=== PATIENT | female | born 1990 | race Caucasian/White ===

== ENCOUNTER 2021-02-16 18:38 | Outpatient (CLI) | payer OTHER, SELFPAY ==
[2021-02-16 19:05] VITALS: BP 128/86; PULSE 84; RESP 18
[2021-02-16 19:13] VITALS: BP 137/86; PULSE 85
[2021-02-16 19:14] LABS: Basophils Percent Auto 0.2 % (0.2-1.2); Eosinophils Absolute Auto 0.1 K/mm3 (0-0.3); Eosinophils Percent Auto 0.6 % (0-4.4); Hematocrit 37.4 % (37.0-47.0); Hemoglobin 12.5 g/dL (12.0-15.0); Immature Granulocyte Percent A 0.8 % (0-0.5); Lymphocytes Absolute Auto 2.22 K/mm3 (0.9-3.2); Lymphocytes Percent Auto 18.4 % (18.3-44.2); Mean Corpuscular HGB Conc 33.4 g/dl (32-36); Mean Corpuscular Hemoglobin 32.1 pg (26-34); Mean Corpuscular Volume 95.9 fl (80-100); Mean Platelet Volume 11.3 fl (7.4-10.4); Monocytes Absolute Auto 0.9 K/mm3 (0.1-0.6); Monocytes Percent Auto 7.4 % (2.6-8.5); Neutrophils Absolute Auto 8.8 K/mm3 (1.3-6.7); Neutrophils Percent Auto 72.6 % (45.5-73.1); Platelet Count Result 187 k/mm3 (150-375); Red Cell Distribution Width 13.1 % (11.5-14.5); White Blood Count 12.1 K/mm3 (4.5-10.0)
[2021-02-16 19:15] VITALS: BP 121/72; PULSE 84
[2021-02-16 19:19] LABS: Add Urine Microscopic? YES; Appearance Urine Cloudy (Clear); Bacteria Urine Trace /hpf; Bilirubin Urine Negative (Negative); Blood Urine Negative (Negative); Color Urine Yellow (Yellow); Glucose Urine UA Negative (Negative); Ketones Urine Negative (Negative); Leukocyte Esterase Ur Negative LEU/UL (NEGATIVE); Mucus Urine Rare /lpf; Nitrate Urine Negative (Negative); Protein Urine 1+ mg/dL (Negative); Specific Grav Ur 1.018 (1.001-1.035); Squamous Epithelial Cell Urine Rare /hpf (Few); Urobilinogen Urine Negative mg/dL (<2.0)
[2021-02-16 19:22] LABS: Creatinine Urine 133.2 mg/dL; Total Protein Urine Random 15 mg/dL; Ur Ttl Prot Creatinine Ratio 0.11 mg/mg (0-0.20)
[2021-02-16 19:24] VITALS: RESP 16; TEMP 36.4
[2021-02-16 19:28] LABS: Alanine Aminotransferase 13 U/L (4-35); Alkaline Phosphatase 94 U/L (38-126); Anion Gap 9 mmol/L (8-16); Aspartate Amino Transferase 16 U/L (14-36); Bilirubin,Total 0.4 mg/dL (0.2-1.3); Blood Urea Nitrogen 7 mg/dL (7-17); Calcium 9.1 mg/dL (8.4-10.2); Carbon Dioxide 22 mmol/L (22-30); Chloride 105 mmol/L (98-107); Estimated Glomerular Filt Rate > 60; Glucose 79 mg/dL (65-110); Potassium 3.9 mmol/L (3.4-5.0); Sodium 136 mmol/L (137-145)
[2021-02-16 19:30] VITALS: BP 121/89; PULSE 87
[2021-02-16] MEDS: FAMOTIDINE 20 MG TABLET 40 MG PO (19:42)
--- NOTE | 2021-02-16 19:49 | PC.NURSE ---
Dr Mello Ybarra responded to page at 1931. Updated on pt blood pressures, lab results, assessment, and fht. Orders received.
== END 2021-02-16 19:47 | disposition home or self-care (01) ==
PROVIDERS: Obstetrics & Gynecology; Visit Provider Student in an Organized Health Care Education/Training Program
DX: O13.9 Gestational [pregnancy-induced] hypertension without significant proteinuria, unspecified trimester (principal); Z3A.00 Weeks of gestation of pregnancy not specified
CPT/HCPCS: 36415; 80053; 81001; 82570; 84156; 84550; 85025; 87086; 87088; A9270

== ENCOUNTER 2021-02-26 07:26 | Outpatient (RCR) | payer OTHER, SELFPAY ==
[2021-02-15 09:59] LABS: Hematocrit 35.8 % (37.0-47.0); Mean Corpuscular HGB Conc 33.5 g/dl (32-36); Mean Corpuscular Hemoglobin 32.4 pg (26-34); Mean Corpuscular Volume 96.8 fl (80-100); Mean Platelet Volume 11.3 fl (7.4-10.4); Platelet Count Result 168 k/mm3 (150-375); Red Cell Distribution Width 12.9 % (11.5-14.5); White Blood Count 10.9 K/mm3 (4.5-10.0)
[2021-02-15 10:10] VITALS: BP 125/80; PULSE 84
[2021-02-15 10:11] LABS: Alanine Aminotransferase 14 U/L (4-35); Albumin Level 3.9 g/dL (3.5-5.1); Alkaline Phosphatase 85 U/L (38-126); Anion Gap 10 mmol/L (8-16); Aspartate Amino Transferase 17 U/L (14-36); Bilirubin,Total 0.2 mg/dL (0.2-1.3); Blood Urea Nitrogen 6 mg/dL (7-17); Calcium 9.3 mg/dL (8.4-10.2); Carbon Dioxide 18 mmol/L (22-30); Chloride 106 mmol/L (98-107); Estimated Glomerular Filt Rate > 60; Glucose 112 mg/dL (65-110); Potassium 3.6 mmol/L (3.4-5.0); Sodium 134 mmol/L (137-145); Uric Acid 4.7 mg/dL (2.5-7.5)
[2021-02-15 10:45] LABS: Creatinine Urine 144.9 mg/dL; Total Protein Urine Random 7 mg/dL; Ur Ttl Prot Creatinine Ratio 0.05 mg/mg (0-0.20)
[2021-02-15 10:48] LABS: Add Urine Microscopic? YES; Appearance Urine Cloudy (Clear); Bacteria Urine Trace /hpf; Bilirubin Urine Negative (Negative); Blood Urine Negative (Negative); Color Urine Yellow (Yellow); Glucose Urine UA 3+ mg/dL (Negative); Ketones Urine Trace mg/dL (Negative); Leukocyte Esterase Ur Negative LEU/UL (NEGATIVE); Mucus Urine Few /lpf; Nitrate Urine Negative (Negative); Protein Urine 1+ mg/dL (Negative); Specific Grav Ur 1.017 (1.001-1.035); Squamous Epithelial Cell Urine Moderate /hpf (Few); Urobilinogen Urine Negative mg/dL (<2.0)
[2021-02-16 10:38] VITALS: BMI 38.0
[2021-02-16 12:00] LABS: Collection Time Urine 24 HOURS; Patient Weight 257 Lbs
[2021-02-16 12:00] LABS: Total Volume 24 Hour Urine 2000 ml
[2021-02-16 12:01] LABS: Total Volume 24 Hour Urine 2000 ml
[2021-02-16 12:13] LABS: Total Protein Urine 24 Hr 360 mg/24hr (28-141); Total Protein Urine Random 18 mg/dL
[2021-02-16 12:14] LABS: Creatinine Clearance Urine 159.5 ml/min (75-125)
[2021-02-22 12:44] VITALS: BP 125/79; PULSE 93
[2021-02-26 07:52] VITALS: BP 131/82; PULSE 97
== END 2021-04-15 09:42 | disposition home or self-care (01) ==
LOC: ANHOBOP 07:26
PROVIDERS: Visit Provider Student in an Organized Health Care Education/Training Program
DX: O26.893 Other specified pregnancy related conditions, third trimester (principal); R03.0 Elevated blood-pressure reading, without diagnosis of hypertension; Z3A.35 35 weeks gestation of pregnancy
CPT/HCPCS: 36415; 59025; 80053; 81001; 81050; 82570; 82575; 84156; 84550; 85027; 87086; 87088

== ENCOUNTER 2021-03-02 19:45 | Inpatient (IN) | payer OTHER, SELFPAY ==
[2021-03-02] VITALS (17 sets, daily range): BP systolic 100–145; BP diastolic 32–103; PULSE 84–122; RESP 18; TEMP 36.6; BMI 37.3
--- NOTE | 2021-03-02 20:34 | LDADM ---
This patient, Hina Bonilla, was admitted to Labor/Delivery/Recovery 106 on 03/02/21 at 19:45. Plans for labor, pain management and were discussed with patient. Patient/family oriented to hospital policies and general routines including ID bracelet, bed and alarms, visiting hours, pain management, procedures, bathroom and other care routines, personal items, smoking policy, room service/diet and guest tray routines, infant security routines, and visiting hours. Patient/Family are encouraged to report perceived risks to care and to ask questions if they do not understand what they are told or what they should do. See OBIX for further documentation.
[2021-03-02 20:35] LABS: Basophils Percent Auto 0.2 % (0.2-1.2); Eosinophils Absolute Auto 0.1 K/mm3 (0-0.3); Eosinophils Percent Auto 0.4 % (0-4.4); Hematocrit 37.2 % (37.0-47.0); Hemoglobin 12.5 g/dL (12.0-15.0); Immature Granulocyte Absolute 0.09 K/mm3 (0.00-0.031); Immature Granulocyte Percent A 0.7 % (0-0.5); Lymphocytes Absolute Auto 2.74 K/mm3 (0.9-3.2); Lymphocytes Percent Auto 22.5 % (18.3-44.2); Mean Corpuscular HGB Conc 33.6 g/dl (32-36); Mean Corpuscular Hemoglobin 31.8 pg (26-34); Mean Corpuscular Volume 94.7 fl (80-100); Mean Platelet Volume 11.6 fl (7.4-10.4); Monocytes Absolute Auto 0.9 K/mm3 (0.1-0.6); Monocytes Percent Auto 7.5 % (2.6-8.5); Neutrophils Absolute Auto 8.4 K/mm3 (1.3-6.7); Neutrophils Percent Auto 68.7 % (45.5-73.1); Platelet Count Result 200 k/mm3 (150-375); Red Blood Count 3.93 M/mm3 (4.2-5.4); Red Cell Distribution Width 12.7 % (11.5-14.5); White Blood Count 12.2 K/mm3 (4.5-10.0)
[2021-03-02 20:48] LABS: Alanine Aminotransferase 15 U/L (4-35); Albumin Level 4.1 g/dL (3.5-5.1); Alkaline Phosphatase 109 U/L (38-126); Anion Gap 10 mmol/L (8-16); Aspartate Amino Transferase 21 U/L (14-36); Bilirubin,Total 0.4 mg/dL (0.2-1.3); Blood Urea Nitrogen 8 mg/dL (7-17); Calcium 9.6 mg/dL (8.4-10.2); Carbon Dioxide 19 mmol/L (22-30); Chloride 103 mmol/L (98-107); Estimated Glomerular Filt Rate > 60; Glucose 121 mg/dL (65-110); Potassium 3.7 mmol/L (3.4-5.0); Sodium 132 mmol/L (137-145); Uric Acid 4.7 mg/dL (2.5-7.5)
--- NOTE | 2021-03-02 21:00 | WPDANESEPP ---
Anes - Eval Pre Procedure Procedure: Labor epidural Date/Time: 03/02/21 21:00 Surgeon: Abraham Preop Diagnosis: Abd pain with contractions Pre Op Diagnosis: Induction Patient Data Age: 30 Gender: F Height: 1.77 m Weight: 116.4 kg Last Vital Signs Pulse 99 03/02/21 20:46 BP 124/87 03/02/21 20:46 Allergies Allergy/AdvReac Type Severity Reaction Status Date / Time latex Allergy Hives Verified 04/14/19 14:08 Home Medications Medication Instructions Recorded Confirmed Type famotidine [Pepcid] 20 mg PO BID #10 tablet 04/14/19 03/02/21 Rx ergocalciferol (vitamin D2) 1 mcg PO WEEKLY 03/02/21 03/02/21 History [id number] 1 tablet PO DAILY 03/02/21 03/02/21 History [] Laboratory Tests 03/02/21 03/02/21 03/02/21 20:19 20:19 20:19 WBC 12.2 K/mm3 H K/mm3 (4.5-10.0) RBC 3.93 M/mm3 L M/mm3 (4.2-5.4) Hgb 12.5 g/dL g/dL (12.0-15.0) Hct 37.2 % % (37.0-47.0) MCV 94.7 fl fl (80-100) MCH 31.8 pg pg (26-34) MCHC 33.6 g/dl g/dl (32-36) RDW 12.7 % % (11.5-14.5) Plt Count 200 k/mm3 k/mm3 (150-375) MPV 11.6 fl H fl (7.4-10.4) Immature Gran % (Auto) 0.7 % H % (0-0.5) Neut % (Auto) 68.7 % % (45.5-73.1) Lymph % (Auto) 22.5 % % (18.3-44.2) [place] % (Auto) 7.5 % % (2.6-8.5) Eos % (Auto) 0.4 % % (0-4.4) Baso % (Auto) 0.2 % % (0.2-1.2) Lymph # (Auto) 2.74 K/mm3 K/mm3 (0.9-3.2) [place] # (Auto) 0.9 K/mm3 H K/mm3 (0.1-0.6) Eos # (Auto) 0.1 K/mm3 K/mm3 (0-0.3) Baso # (Auto) 0.0 K/mm3 K/mm3 (0.0-0.1) Abs Immat Gran (auto) 0.09 K/mm3 H K/mm3 (0.00-0.031) Absolute Neuts (auto) 8.4 K/mm3 H K/mm3 (1.3-6.7) Absolute Nucleated RBC 0.0 K/mm3 K/mm3 (0.0-0.012) Nucleated RBC % 0.0 % % (0.0-0.2) Sodium 132 mmol/L L mmol/L (137-145) Potassium 3.7 mmol/L mmol/L (3.4-5.0) Chloride 103 mmol/L mmol/L (98-107) Carbon Dioxide 19 mmol/L L mmol/L (22-30) Anion Gap 10 mmol/L mmol/L (8-16) BUN 8 mg/dL mg/dL (7-17) Creatinine 0.60 mg/dL L mg/dL (0.7-1.0) Estim Creat Clear Calc Not Reportable Estimated GFR > 60 (59 - ) Glucose 121 mg/dL H mg/dL (65-110) Uric Acid 4.7 mg/dL mg/dL (2.5-7.5) Calcium 9.6 mg/dL mg/dL (8.4-10.2) Total Bilirubin 0.4 mg/dL mg/dL (0.2-1.3) AST 21 U/L U/L (14-36) ALT 15 U/L U/L (4-35) Alkaline Phosphatase 109 U/L U/L (38-126) Total Protein 7.0 g/dL g/dL (6.3-8.2) Albumin 4.1 g/dL g/dL (3.5-5.1) RPR Pending Patient hx anesthesia problems: none Family hx anesthesia problems: none Results Review: All pre-operative results and documents have been reviewed as part of the pre-operative evaluation. [facility] Past Medical History Medical History Obesity PIH ( induced hypertension) Pre-eclampsia and not yet delivered Tonsillectomy planned Social History Social History Smoking status: Former smoker Tobacco type: e-cigarettes/vaping Substance use: never Spiritual care concerns: No Exam Day of Procedure 03/02/21 21:00 Patient weight: obese Lungs: clear to auscultation Airway: Mallampati scale class II Neurological: alert and oriented
[2021-03-02] MEDS: miSOPROStol 25 MCG TABLET VAGINAL (21:01)
[2021-03-03] VITALS (15 sets, daily range): BP systolic 99–149; BP diastolic 61–95; PULSE 82–101; RESP 18; TEMP 36.4–37
[2021-03-03] MEDS: miSOPROStol 25 MCG TABLET VAGINAL ×3 (01:00→09:33)
--- NOTE | 2021-03-03 06:36 | PM.IMHP ---
H&P: HPI History of Present Illness Date/Time: 03/03/21 06:36 Chief Complaint: intrauterine at term preeclampsia Narrative: 30 yo G1 at 37w4d who presents for IOL due to preeclampsia. Pt had several elevated BP readings at outpatient visits. [facility] labs revealed proteinuria at 34 w. Pt BP remained mild range. Pt had reassuring testing. is an IVF with transfer date of 07/03/20. Review of Systems Cardiovascular: Cardiovascular: Denies chest pain, Denies leg edema, Denies palpitations, Denies dyspnea and Denies dyspnea on exertion Respiratory: Respiratory: Denies cough, Denies dyspnea and Denies dyspnea on exertion Gastrointestinal: Gastrointestinal: Denies abdominal pain, Denies constipation, Denies diarrhea, Denies nausea and Denies vomiting Genitourinary: Genitourinary: Denies hematuria, Denies urinary frequency, Denies dysuria, Denies pelvic pain, Denies urinary incontinence and Denies vaginal discharge Neurologic: Reports system reviewed and no additional complaints, except as documented Psychiatric: Psychiatric: Reports no additional psychiatric complaints Endocrine: Endocrine: Denies palpitations [facility] Past Medical History Medical History Obesity PIH ( induced hypertension) Pre-eclampsia and not yet delivered Tonsillectomy planned Social History Social History Smoking status: Former smoker Tobacco type: e-cigarettes/vaping Substance use: never Spiritual care concerns: No Meds Home Medications and Allergies Home Medications Medication Instructions Recorded Confirmed Type famotidine [Pepcid] 20 mg PO BID #10 tablet 04/14/19 03/02/21 Rx ergocalciferol (vitamin D2) 1 mcg PO WEEKLY 03/02/21 03/02/21 History [id number] 1 tablet PO DAILY 03/02/21 03/02/21 History [] Allergies Allergy/AdvReac Type Severity Reaction Status Date / Time latex Allergy Hives Verified 04/14/19 14:08 Vital Signs Vital Signs - 24 hr 03/02/21 20:11 03/02/21 20:16 03/02/21 20:31 Temperature Pulse Rate 111 H 106 H 109 H Respiratory Rate Blood Pressure 131/79 135/97 H 132/88 03/02/21 20:46 03/02/21 20:58 03/02/21 21:01 Temperature 36.6 C Pulse Rate 99 101 H Respiratory Rate 18 Blood Pressure 124/87 145/92 H 03/02/21 21:16 03/02/21 21:31 03/02/21 21:46 Temperature Pulse Rate 100 122 H 97 Respiratory Rate Blood Pressure 134/81 133/72 128/75 03/02/21 22:01 03/02/21 22:16 03/02/21 22:31 Temperature Pulse Rate 92 104 H 106 H Respiratory Rate Blood Pressure 133/91 H 122/82 125/98 H 03/02/21 22:32 03/02/21 22:46 03/02/21 23:01 Temperature Pulse Rate 107 H 101 H 92 Respiratory Rate Blood Pressure 123/78 124/87 129/103 H 03/02/21 23:19 03/02/21 23:21 03/03/21 00:57 Temperature 37.0 C Pulse Rate 84 85 Respiratory Rate 18 Blood Pressure 103/32 L 100/73 03/03/21 00:58 03/03/21 05:22 03/03/21 05:23 Temperature 36.8 C Pulse Rate 96 94 Respiratory Rate Blood Pressure 139/86 135/70 Exam Const: General: no acute distress Eyes: EOM: EOMs intact bilaterally Neck: Neck: supple Thyroid: thyroid normal Chest: Breast/axilla inspection: normal inspection of the breasts Breast/axilla palpation: normal palpation of the breasts, normal palpation of the axillae and no axillary lymphadenopathy Resp: Effort & Inspection: normal respiratory effort Auscultation: clear to auscultation bilaterally Cardio: Rate: regular rate Rhythm: regular rhythm GI: Inspection: non-distended GI Palp: Yes Soft to palpation, No Tenderness to palpation present (GI), No Guarding due to palpation present (GI) and Yes Other GI palpation findings present (Gravid) Auscultation: normal bowel sounds : General: No bladder normal to palpation External Female Exam: normal external a
[2021-03-03 10:37] LABS: Rapid Plasma Reagin Non-Reactive (NonReactive)
[2021-03-03] MEDS: DINOPROSTONE 10 MG VAG INSERT VAGINAL (14:32)
[2021-03-04] VITALS (213 sets, daily range): BP systolic 66–139; BP diastolic 34–112; PULSE 27–151; RESP 16; TEMP 36.3–37; O2SAT 78–100
[2021-03-04] MEDS: OXYTOCIN 30 UNITS/NS 500 ML 30 UNITS/500 ML BAG 6 UNITS IV CONT (03:34)
[2021-03-04] MEDS: LACTATED RINGERS 1,000 ML 125 ML IV CONT ×2 (03:34→11:35)
--- NOTE | 2021-03-04 06:45 | PM.OBPNLAB ---
Pain Control Date/time seen: 03/04/21 06:45 Pain control: tolerating well Pelvic Exam Dilation (cm): 2 Effacement (%): 50 station: -3 Amniotic membrane status: Ruptured Comments: AROM for clear fluid Contractions Monitor mode: Internal Contraction pattern: Regular Status status: Category l Assessment and Plan Assessment: induction ongoing Plan: continuous present management
--- NOTE | 2021-03-04 15:36 | P.PCNOB_ITS ---
OB - Delivery Note Procedure Delivery date: 03/04/21 events: Pre-Eclampsia Intrapartal events: Prolonged Labor > 20 hours, Prolonged 2nd Stage > 2.5 hours and Mild Preeclampsia Induction method: per misoprostol protocol Delivery augmentation: rupture of membranes and pitocin Delivery monitor: external FHT and internal uterine Route of delivery: forceps Indication for instrumentation: other (prolonged 2nd stage of labor) Episiotomy description: None Laceration Description: Perineal - 2nd Degree and Vaginal - 2nd Degree Delivery repair: vicryl Specimen: Yes (placenta) Quantitative Blood Loss (ml): 500 Anesthesia type: Epidural Disposition: floor Narrative: Patient had been pushing for 3 hours. skull was noted to be +2 station and OP position. She had a moderate amount of caput. FHT had mod variability, acceleration and occasional decelerations with pushing. Discussed forceps assisted vaginal delivery vs section. Pt was consented and agreed to FAVD. Patient positioned in stirrups with the bed broken, dorsal lithotomy. Her perineum was prepped and draped in the usual fashion. The perineal body was normal length. Pelvis felt to be adequate. +2 station. Mod caput. Sagital suture palpated and found to be direct O-P plane with possibly 5 degrees leftward axis. Phantom application of blades performed prior to placing left hand into vaginal sidewall. Left blade gently inserted along air surveillance operator's hand to ensure no vag lacerations - advanced along the skull with the axillary prominence in a gentle fashion. In a similar fashion, the right blade was gently placed. Blade placement was then double checked to ensure adequate placement. The forceps shank articulated well in the midline. A fingerbreadth below the suture on either side was noted. With the next contraction, gentle downward pressure was applied in sync with the contraction / pushing effort. Adequate descent was noted. There were a total of 2 pulls, and the forceps were disarticulated as the head delivered. A nuchal cord x 1 was noted and easily reduced. The remainder of the infant was delivered atraumatically. A segment of cord taken for gases and sample collected as above. A second degree midline perineal lac was noted as well as a 2nd degree right sulcal vaginal laceration. The placenta delivered spontaneously and found to be intact. Routine repair of the lacerations with 3-0 vicryl. The uterus was noted to be atonic after prolonged 2nd stage. Brisk bleeding was noted from the vagina. Bimanual exam expressed several clots from the lower uterine segment. The patient was given 800 mcg of cytotec rectally. Fundal massage was continued and good tone and hemostasis was noted. All sponge, lap, and needle counts correct x 2. Patient taken out of lithotomy position and tolerated procedure very well. NICU present for delivery. Baby Date of : 03/04/21 Time of : 15:00 Weeks of gestation at delivery: 37 gender: Female Weight (pounds): 7 Weight (ounces): 10 presentation: vertex position: Right Occiput Posterior Placenta delivery description: Spontaneous cord vessel description: Nuchal Cord score one minute: 8 score five minutes: 9
[2021-03-04] MEDS: OXYTOCIN 30 UNITS/NS 500 ML 30 UNITS/500 ML BAG 125 UNITS IV CONT (15:42)
[2021-03-04] MEDS: LACTATED RINGERS 1,000 ML 999 ML IV CONT (17:12)
[2021-03-04 17:34] LABS: Hematocrit 31.6 % (37.0-47.0); Hemoglobin 10.2 g/dL (12.0-15.0); Mean Corpuscular HGB Conc 32.3 g/dl (32-36); Mean Corpuscular Hemoglobin 31.6 pg (26-34); Mean Corpuscular Volume 97.8 fl (80-100); Mean Platelet Volume 11.6 fl (7.4-10.4); Platelet Count Result 210 k/mm3 (150-375); Red Blood Count 3.23 M/mm3 (4.2-5.4); White Blood Count 26.5 K/mm3 (4.5-10.0)
[2021-03-04] MEDS: ONDANSETRON INJ 4 MG/2 ML VIAL IV PUSH (17:44)
[2021-03-04] MEDS: METHYLERGONOVINE MALEATE 0.2 MG/ML VIAL IM (17:45)
--- NOTE | 2021-03-04 17:49 | P.PNOB_ITS ---
OB - PN: Subj Subjective Date/time seen: 03/04/21 17:49 Interval history: Called to patient room for concerns of continued hemorrhage. Pt had 223 ml of blood in her pad after delivery. RN had noted the fundus was above the umbilicus. I performed a bedside US that showed a large amount of clot in the lower uterine segment. Pt was noted to be pale and l ethargic. STAT CBC was ordered. Pt was receiving IVF bolus. She was alert and in no pain. Anesthesia redosed her epidural. Once adequate anesthesia was confirmed, manual extraction of clots was performed under US guidance. The lower uterine segment was cleared of clots. There was still some clot noted near the fundus. Bedside Banjo curettage was then performed under direct US guidance. 493 mL of clot was removed from the uterus. Pt was very nauseous and had several episodes of emesis. Pt noted to be hypotensive. IM methergine was given since BP has had normal to hypotensive BP throughout her admission. No active bleeding was noted. The perineal laceration was inspected after manipualtion and there was a 1 cm superficial separation of the vaginal mucosa. The separation was repaired with a running 3-0 vicryl. Good hemostasis was noted. Bedside US was repeat and no further clot had accumulated in the uterus. Will continue to monitor. Continue IVF bolus. H/H is currently .. Patient comments: pain well controlled OB - PN: Obj Data Labs CBC & Chem 7: 03/04/21 17:26 03/02/21 20:19 Labs: Laboratory Results - last 24 hr 03/04/21 17:26 WBC 26.5 H RBC 3.23 L Hgb 10.2 L Hct 31.6 L MCV 97.8 MCH 31.6 MCHC 32.3 RDW 13.0 Plt Count 210 MPV 11.6 H OB - PN A/P Time Spent With Patient Time: Total time spent is greater than 50% in coordination of care (as documented) at patient's floor/unit and/or counseling patient:
--- NOTE | 2021-03-04 18:43 | PC.NURSE ---
Cytotec 800 mcg placed [place] by Dr. Rosario at 1534.
[2021-03-04] MEDS: TRANEXAMIC ACID 1,000MG/ISO100 1,000 MG/100 ML BAG 200 MG IVPB (19:00)
[2021-03-04] MEDS: WITCH HAZEL 40 PADS 1 PAD TOPICAL (19:27)
[2021-03-04] MEDS: BENZOCAINE 20% AER SPR (*SP) 56 GM CAN 1 SPRAY TOPICAL (19:27)
[2021-03-04] MEDS: HYDROcodone/acetaminophen (*CRX) 5-325 MG TABLET 1 TAB PO (20:02)
--- NOTE | 2021-03-04 20:31 | ADMGEN ---
This patient, Hina Bonilla, was admitted to OB 2nd Floor Room 283-00. Patient/family oriented to hospital policies and general routines including ID bracelet, bed and alarms, visiting hours, pain management, procedures, bathroom and other care routines, personal items, smoking policy, room service/diet, and visiting hours. Information on how to activate the Rapid Response Team has been discussed. Patient/Family are encouraged to report perceived risks to care and to ask questions if they do not understand what they are told or what they should do.
[2021-03-04] MEDS: POLYSACCHARIDE IRON COMPLEX 150 MG CAPSULE PO (22:14)
[2021-03-04] MEDS: SENNA/DOCUSATE SODIUM TABLET 2 TAB PO (22:14)
[2021-03-05] VITALS (12 sets, daily range): BP systolic 101–134; BP diastolic 55–78; PULSE 73–95; RESP 16–18; TEMP 36.6–37; O2SAT 96–100
[2021-03-05] MEDS: IBUPROFEN 600 MG TABLET PO ×4 (00:20→20:54)
[2021-03-05] MEDS: ONDANSETRON INJ 4 MG/2 ML VIAL IV PUSH (00:20)
[2021-03-05] MEDS: HYDROcodone/acetaminophen (*CRX) 5-325 MG TABLET 1 TAB PO ×3 (02:06→15:01)
[2021-03-05 05:27] LABS: Basophils Percent Auto 0.2 % (0.2-1.2); Eosinophils Percent Auto 0.2 % (0-4.4); Hematocrit 21.2 % (37.0-47.0); Immature Granulocyte Absolute 0.06 K/mm3 (0.00-0.031); Immature Granulocyte Percent A 0.5 % (0-0.5); Lymphocytes Absolute Auto 2.01 K/mm3 (0.9-3.2); Mean Corpuscular HGB Conc 32.5 g/dl (32-36); Mean Corpuscular Hemoglobin 31.5 pg (26-34); Mean Corpuscular Volume 96.8 fl (80-100); Mean Platelet Volume 11.6 fl (7.4-10.4); Monocytes Absolute Auto 1.3 K/mm3 (0.1-0.6); Monocytes Percent Auto 10.2 % (2.6-8.5); Neutrophils Absolute Auto 9.2 K/mm3 (1.3-6.7); Neutrophils Percent Auto 72.9 % (45.5-73.1); Platelet Count Result 117 k/mm3 (150-375); Red Blood Count 2.19 M/mm3 (4.2-5.4); Red Cell Distribution Width 13.1 % (11.5-14.5); White Blood Count 12.6 K/mm3 (4.5-10.0)
[2021-03-05 05:31] LABS: Hemoglobin 6.9 g/dL (12.0-15.0)
[2021-03-05 05:56] LABS: Alanine Aminotransferase 14 U/L (4-35); Albumin Level 2.6 g/dL (3.5-5.1); Alkaline Phosphatase 68 U/L (38-126); Anion Gap 5 mmol/L (8-16); Aspartate Amino Transferase 28 U/L (14-36); Bilirubin,Total 0.2 mg/dL (0.2-1.3); Blood Urea Nitrogen 7 mg/dL (7-17); Calcium 8.3 mg/dL (8.4-10.2); Carbon Dioxide 21 mmol/L (22-30); Chloride 104 mmol/L (98-107); Estimated CRCL calculation 123 ml/min; Estimated Glomerular Filt Rate > 60; Glucose 89 mg/dL (65-110); Potassium 3.8 mmol/L (3.4-5.0); Sodium 130 mmol/L (137-145)
--- NOTE | 2021-03-05 06:44 | P.PNOB_ITS ---
OB - PN: Subj Subjective Date/time seen: 03/05/21 06:44 Patient comments: no complaints, pain well controlled and tolerating diet [place] feeding status: exclusively breast feeding Narrative: patient doing well this AM. No complaints. Pain is well controlled. She reports minimal bleeding. She is ambulating and voiding without difficulty. She is tolerating PO. She denies N/V, fever, chills. OB - PN: Obj Data Labs CBC & Chem 7: 03/05/21 05:15 03/05/21 05:15 Labs: Laboratory Results - last 24 hr 03/04/21 03/05/21 03/05/21 17:26 05:15 05:15 WBC 26.5 H 12.6 H RBC 3.23 L 2.19 L Hgb 10.2 L 6.9 L* D Hct 31.6 L 21.2 L MCV 97.8 96.8 MCH 31.6 31.5 MCHC 32.3 32.5 RDW 13.0 13.1 Plt Count 210 117 L MPV 11.6 H 11.6 H Immature Gran % (Auto) 0.5 Neut % (Auto) 72.9 Lymph % (Auto) 16.0 L [place] % (Auto) 10.2 H Eos % (Auto) 0.2 Baso % (Auto) 0.2 Lymph # (Auto) 2.01 [place] # (Auto) 1.3 H Eos # (Auto) 0.0 Baso # (Auto) 0.0 Abs Immat Gran (auto) 0.06 H Absolute Neuts (auto) 9.2 H Absolute Nucleated RBC 0.0 Nucleated RBC % 0.0 Sodium 130 L Potassium 3.8 Chloride 104 Carbon Dioxide 21 L Anion Gap 5 L BUN 7 Creatinine 0.80 Estim Creat Clear Calc 123 Estimated GFR > 60 Glucose 89 Calcium 8.3 L Total Bilirubin 0.2 AST 28 ALT 14 Alkaline Phosphatase 68 Total Protein 5.0 L Albumin 2.6 L OB - PN A/P Plan day: 1 Plan: routine care Comments: patient doing well H/H 6.12/22. Pt asymptomatic. recommended blood transfusion. Risks, benefits, alternatives discussed. Pt consented for 2u pRBC transfusion. BP nl, denies any PreE symptoms CMP stable this AM continue routine care Time Spent With Patient Time: Total time spent is greater than 50% in coordination of care (as documented) at patient's floor/unit and/or counseling patient: Time with patient: less than 15 minutes Review of Systems Review of Systems: All systems reviewed & are unremarkable except as noted in HPI and below Exam Const: General: comfortable and no acute distress Resp: Effort & Inspection: normal respiratory effort Cardio: Rate: regular rate GI: GI Palp: Yes Soft to palpation and No Tenderness to palpation present (GI) Auscultation: normal bowel sounds Other: fundus firm and below umbilicus. Psych: Affect: normal affect
[2021-03-05] MEDS: POLYSACCHARIDE IRON COMPLEX 150 MG CAPSULE PO ×2 (08:38→18:49)
[2021-03-05] MEDS: MULTIVIT/MIN/PREN/FOL AC/IRON TABLET 1 TAB PO (08:38)
[2021-03-05] MEDS: diphenhydrAMINE HCl CAP 25 MG CAPSULE PO (08:38)
[2021-03-05] MEDS: SODIUM CHLORIDE 0.9% IV 250 ML 100 ML (08:40)
--- NOTE | 2021-03-05 09:00 | PC.NURSE ---
Mother called out for assist with feeding. Mother reports infant has made a few attempts without latch and then bottle fed. Infant is able to freely thrust tongue past gum ridge and flange both lips. Discussed establishing in the late infant may be more difficult due to their immaturity, infant may be less alert, have less stamina, and have greater difficulty with latch, suck, and swallow. Infant?s feeding may impact mother?s milk supply, pumping may need to be initiated until milk supply is well established and infant is able to effectively breastfeed without supplementation. Discussed mother's blood loss after delivery and how this may impact milk supply and may delay milk production. Reviewed feeding cues, frequencies, duration of feedings, feeding elimination flow sheet, and signs of adequate intake. Demonstrated stimulation techniques to wake for feeding. Assisted with to breast. Reviewed positioning/alignment in cross cradle, holding breast in ?U? hold and guided asymmetrical latch on. Reviewed rational for each. Infant made a weak effort to latch with a shallow latch short chew sucks for a few bursts followed with long pausing. Advised skin to skin is good stimulation and should be done before each feeding for 5-10 minutes, to facilitate waking infant before latch. Discussed the difference of effective vs ineffective feeding. Reviewed infant is latching with good burst of suckling, he is not feeding consistently with adequate milk transfer at this time and continues to need supplement after . Feeding options discussed, Feeding Plan is for mother to put infant to breast each feeding for up to 15 minutes, then pace feed supplement 20 mls and pump for 10-15 minutes. Parents are comfortable with supplementation and pumping. If begins to nurse effectively with long draws and frequent swallowing noted, infant may decrease supplementation and discontinue pumping. Suggested mother have LC cracking unit operator observe feeding before discontinuing supplementation. Discussed increasing supplementation as infant requires to satisfactions. Reviewed paced feeding and suggested to stop when infant is satisfied, as long as is having required output. With increased supplementation may not want to feed for 4 hours. Mother will continue to pump on feeding schedule and will increase session to 20 minutes if pumping every 4 hours. Instructed mother to call out for RN assistance if she is unable to latch infant for feeding or she has discomfort with nursing. Instructed feeding should be initiated three hours from start of last feeding or if feeding cues are noted before. Mother voiced understanding of information shared.
--- NOTE | 2021-03-05 11:45 | PC.NURSE ---
Breast pump provided due to nearterm infant/ineffective feeding. Instructions given on breast pump care and usage, pumping schedule, nipple care, and collection and storage of breast milk. Encouraged [id number], breast massage and manual expression to stimulate supply. Assessed patient for correct flange size, placement and draw. Patient verbalizes and demonstrates understanding of instructions. Discussed colostrum vs milk supply and mother may not see more than a few drops the first few days, milk should transition in by day 3 and she may see more volume pumped per session.
--- NOTE | 2021-03-05 18:39 | PM.OBDSVD ---
DS: Admitting Diagnosis Discharge Date 03/05/21 Admitting Diagnosis Preeclampsia intrauterine at term obesity OB - DS: Summary OB Procedures : None OB Procedures Intrapartum: Forceps, Uterine exploration and Curettage OB Procedures: : Transfusion Peripartum Data Infant Delivery Method: Assisted Delivery Laceration Description: Perineal - 2nd Degree and Vaginal - 2nd Degree Episiotomy description: None complications: transfusion and uterine atony Status at Discharge Functional status at discharge: independent ambulation Overall status at discharge: patient is back to baseline Time Spent with Patient Time attestation: Total time spent providing and/or coordinating discharge services: Time spent: Less than 30 minutes Exam Const: General: comfortable and no acute distress Resp: Effort & Inspection: normal respiratory effort Auscultation: clear to auscultation bilaterally Cardio: Rate: regular rate GI: GI Palp: Yes Soft to palpation Auscultation: normal bowel sounds Other: Fundus firm below umbilicus Psych: Appearance: grossly normal Mental Status: mental status grossly normal Affect: normal affect DS: Data Data Completed and Pending Pending studies at discharge: Pending at discharge 03/04/21 15:13 Surgical [PTH] Routine Labs on day of discharge: Labs from last 24 hours 03/05/21 03/05/21 03/02/21 05:15 05:15 20:19 WBC 12.6 H RBC 2.19 L Hgb 6.9 L* D Hct 21.2 L MCV 96.8 MCH 31.5 MCHC 32.5 RDW 13.1 Plt Count 117 L MPV 11.6 H Immature Gran % (Auto) 0.5 Neut % (Auto) 72.9 Lymph % (Auto) 16.0 L [place] % (Auto) 10.2 H Eos % (Auto) 0.2 Baso % (Auto) 0.2 Lymph # (Auto) 2.01 [place] # (Auto) 1.3 H Eos # (Auto) 0.0 Baso # (Auto) 0.0 Abs Immat Gran (auto) 0.06 H Absolute Neuts (auto) 9.2 H Absolute Nucleated RBC 0.0 Nucleated RBC % 0.0 Sodium 130 L Potassium 3.8 Chloride 104 Carbon Dioxide 21 L Anion Gap 5 L BUN 7 Creatinine 0.80 Estim Creat Clear Calc 123 Estimated GFR > 60 Glucose 89 Calcium 8.3 L Total Bilirubin 0.2 AST 28 ALT 14 Alkaline Phosphatase 68 Total Protein 5.0 L Albumin 2.6 L Blood Type A Positive Antibody Screen Negative Crossmatch See Detail Discharge Plan Discharge Discharging Clinician: Dante Rosario Patient Disposition: Home, Self-Care Activity: as tolerated and pelvic rest Diet: regular Patient Instructions: Antibiotic Form, Preeclampsia and Eclampsia After Delivery (GEN), Vaginal Delivery (DC) Stand Alone Forms: General Discharge Information Follow-up/Referrals: Dante Rosario MD [Physician] - 1 Week (BP check) Discharge Medications: New hydrocodone-acetaminophen 5-325 mg tablet 1 tablet PO Q6H PRN (Reason: pain) Qty: 28 RF: 0 sennosides-docusate sodium [Senokot-S] 8.6-50 mg Tablet 2 tab PO HS Qty: 60 RF: 0 polysaccharide iron complex 150 mg iron Capsule 150 mg PO BIDWM Qty: 60 RF: 0 acetaminophen [Mapap (acetaminophen)] 325 mg Tablet 650 mg PO Q6H PRN (Reason: Mild Pain (1-3) Or Headache) Qty: 30 RF: 0 ibuprofen 600 mg Tablet 600 mg PO Q6H PRN (Reason: Cramping) Qty: 30 RF: 0 Continued 1 mg Tablet 1 tablet PO DAILY RF: 0 famotidine [Pepcid] 20 mg tablet 20 mg PO BID Qty: 10 RF: 0 Discontinued ergocalciferol (vitamin D2) 1,250 mcg (50,000 unit) capsule 1 mcg PO WEEKLY RF: 0 Date of admission: 03/02/21 19:45 Primary Care Provider: SuzieWong Admitting Provider: Dante Rosario Attending physician on admission: Dante Rosario Condition: Stable
--- NOTE | 2021-03-05 19:07 | PC.NURSE ---
Patient viewed the discharge video Mother & Baby Care, The First Two Weeks . Patient was given the opportunity and encouraged to ask questions. Patient verbalized understanding of information shared and has been given the mother/baby guide for home reference.
[2021-03-05] MEDS: SENNA/DOCUSATE SODIUM TABLET 2 TAB PO (21:06)
[2021-03-05 21:08] LABS: Hematocrit 26.5 % (37.0-47.0); Hemoglobin 8.9 g/dL (12.0-15.0); Mean Corpuscular HGB Conc 33.6 g/dl (32-36); Mean Corpuscular Hemoglobin 31.4 pg (26-34); Mean Corpuscular Volume 93.6 fl (80-100); Mean Platelet Volume 11.5 fl (7.4-10.4); Platelet Count Result 158 k/mm3 (150-375); Red Blood Count 2.83 M/mm3 (4.2-5.4); Red Cell Distribution Width 14.6 % (11.5-14.5); White Blood Count 11.9 K/mm3 (4.5-10.0)
--- NOTE | 2021-03-06 06:46 | PM.DS ---
DS: Admitting Diagnosis Discharge Date 03/06/2021 Admitting Diagnosis gestational hypertension at term DS: Summary Hospital Course Hospital Course: the patient was admitted for induction of labor at term secondary to elevated blood pressures. She underwent a forceps assisted delivery and required postop blood replacement. Following that her she remained afebrile. She was up, voiding without difficulty, ambulating, generally without complaints Time Spent with Patient Time attestation: Total time spent providing and/or coordinating discharge services: Exam Const: General: no acute distress Eyes: General: appearance normal, both eyes and all related structures Neck: Neck: supple and no JVD Thyroid: thyroid normal Resp: Effort & Inspection: normal respiratory effort Auscultation: clear to auscultation bilaterally Cardio: Rate: regular rate Rhythm: regular rhythm GI: Inspection: non-distended GI Palp: Yes Soft to palpation, No Tenderness to palpation present (GI) and No Guarding due to palpation present (GI) Auscultation: normal bowel sounds : General: Yes bladder normal to palpation External Female Exam: normal external appearance Speculum Exam - Vagina: normal vaginal discharge and No vaginal bleeding Speculum Exam - Cervix: nontender Bimanual exam- vagina & uterus: bladder normal to palpation and No Cervical tenderness present OB/external & speculum: No vaginal bleeding Skin: General skin exam: no rashes or lesions noted Extrem: General: normal to inspection and no edema Psych: Mental Status: mental status grossly normal Affect: normal affect DS: Data Data Completed and Pending Pending studies at discharge: Pending at discharge 03/04/21 15:13 Surgical [PTH] Routine Labs on day of discharge: Labs from last 24 hours 03/05/21 03/02/21 20:59 20:19 WBC 11.9 H RBC 2.83 L Hgb 8.9 L Hct 26.5 L MCV 93.6 MCH 31.4 MCHC 33.6 RDW 14.6 H Plt Count 158 MPV 11.5 H Blood Type A Positive Antibody Screen Negative Crossmatch See Detail Discharge Plan Discharge Discharging Clinician: Dante Rosario Patient Disposition: Home, Self-Care Activity: as tolerated and pelvic rest Diet: regular Patient Instructions: Antibiotic Form, Preeclampsia and Eclampsia After Delivery (GEN), Vaginal Delivery (DC) Stand Alone Forms: General Discharge Information Follow-up/Referrals: Dante Rosario MD [Physician] - 1 Week (BP check) Discharge Medications: New hydrocodone-acetaminophen 5-325 mg tablet 1 tablet PO Q6H PRN (Reason: pain) Qty: 28 RF: 0 sennosides-docusate sodium [Senokot-S] 8.6-50 mg Tablet 2 tab PO HS Qty: 60 RF: 0 polysaccharide iron complex 150 mg iron Capsule 150 mg PO BIDWM Qty: 60 RF: 0 acetaminophen [Mapap (acetaminophen)] 325 mg Tablet 650 mg PO Q6H PRN (Reason: Mild Pain (1-3) Or Headache) Qty: 30 RF: 0 ibuprofen 600 mg Tablet 600 mg PO Q6H PRN (Reason: Cramping) Qty: 30 RF: 0 Continued 1 mg Tablet 1 tablet PO DAILY RF: 0 famotidine [Pepcid] 20 mg tablet 20 mg PO BID Qty: 10 RF: 0 Discontinued ergocalciferol (vitamin D2) 1,250 mcg (50,000 unit) capsule 1 mcg PO WEEKLY RF: 0 Date of admission: 03/02/21 19:45 Primary Care Provider: SuzieWong Admitting Provider: Dante Rosario Attending physician on admission: Dante Rosario Condition: Stable
--- NOTE | 2021-03-06 06:51 | PM.GYNPNOP ---
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 Postoperative Postoperative day: 2 Postoperative status: doing well Time Spent With Patient Time: Total time spent is greater than 50% in coordination of care (as documented) at patient's floor/unit and/or counseling patient: Time with patient: less than 15 minutes TIRE REGROOVING MACHINE OPERATOR- PN:Arminda Post-Op Subjective Date/time seen: 03/06/21 06:51 Subjective: patient has no complaints Review of Systems Review of Systems: All systems reviewed & are unremarkable except as noted in HPI and below Exam Const: General: no acute distress Eyes: General: appearance normal, both eyes and all related structures Neck: Neck: supple and no JVD Thyroid: thyroid normal Resp: Effort & Inspection: normal respiratory effort Auscultation: clear to auscultation bilaterally Cardio: Rate: regular rate Rhythm: regular rhythm GI: Inspection: non-distended GI Palp: Yes Soft to palpation, No Tenderness to palpation present (GI) and No Guarding due to palpation present (GI) Auscultation: normal bowel sounds : General: Yes bladder normal to palpation External Female Exam: normal external appearance Speculum Exam - Vagina: normal vaginal discharge and No vaginal bleeding Speculum Exam - Cervix: nontender Bimanual exam- vagina & uterus: bladder normal to palpation and No Cervical tenderness present OB/external & speculum: No vaginal bleeding Skin: General skin exam: no rashes or lesions noted Extrem: General: normal to inspection and no edema Psych: Mental Status: mental status grossly normal Affect: normal affect TIRE REGROOVING MACHINE OPERATOR - PN: Obj Data Vital Signs Vital Signs: Vital Signs - 24 hr 03/05/21 07:55 03/05/21 09:03 03/05/21 09:58 Temperature 98.1 F 98.2 F 98.3 F Pulse Rate 95 91 87 Respiratory Rate 18 18 18 Blood Pressure 117/72 116/56 L 128/62 Pulse Oximetry 97 96 100 03/05/21 10:58 03/05/21 11:55 03/05/21 11:58 Temperature 98.1 F 98.4 F 98.4 F Pulse Rate 85 84 84 Respiratory Rate 18 18 18 Blood Pressure 102/55 L 110/65 110/65 Pulse Oximetry 100 99 99 03/05/21 13:52 03/05/21 14:07 03/05/21 15:07 Temperature 98.3 F 98.3 F 98.0 F Pulse Rate 80 83 89 Respiratory Rate 16 16 16 Blood Pressure 104/60 113/70 110/70 Pulse Oximetry 98 99 100 03/05/21 16:07 Temperature 97.9 F Pulse Rate 80 Respiratory Rate 16 Blood Pressure 134/78 Pulse Oximetry 99 Intake/Output Intake/Output: Intake & Output 03/03/21 03/04/21 03/05/21 03/06/21 23:59 23:59 23:59 23:59 Intake Total 3600 675 Output Total 1216 850 Balance 2384 -678 Meds/Results Medications: Active Medications Generic Name Dose Route Start Last Admin Trade Name Freq PRN Reason Stop Dose Admin Acetaminophen 650 mg 03/04/21 19:07 Acetaminophen 325 Mg Tablet PO Q6H PRN Mild Pain (1-3) or Headache Hydrocodone Bitart/Acetaminophen 1 tab 03/04/21 19:44 03/05/21 15:01 Hydrocodone/Acetaminophen (*Crx) 5-325 Mg Tablet PO 1 tab Q6H PRN Administration Pain Rated 4-6 Benzocaine 1 spray 03/04/21 19:07 03/04/21 19:27 Benzocaine 20% Aer Spr (*Sp) 56 Gm Can TOPICAL 1 spray PRN PRN Administration Perineal Discomfort Dibucaine 1 applic 03/04/21 19:07 Dibucaine 1% Ointment 30 Gm Tube TOPICAL PRN PRN Hemorrhoids Emollient Ointment 1 applic 03/04/21 19:07 Lanolin (Lansinoh) 7.5 Gm Cream TOPICAL PRN PRN Sore Nipples Ibuprofen 600 mg 03/04/21 19:07 03/05/21 20:54 Ibuprofen 600 Mg Tablet PO 600 mg Q6H PRN Administration Cramping Ondansetron HCl 4 mg 03/04/21 19:07 03/05/21 00:20 Ondansetron Inj 4 Mg/2 Ml Vial IV PUSH 4 mg Q6H PRN Administration Nausea Polysaccharide Iron Complex 150 mg 03/04/21 19:07 03/05/21 18:49 Polysaccharide Iron Complex 150 Mg Capsule PO 150 mg BIDWM ANI Administration Vit/Calcium/Iron/Folic Ac 1 tab 03/05/21 09:00 03/05/21 08:38 Multivit/Min/Pren/Fol Ac/Iron Tablet PO 1 tab DAILY ANI Administration Senna/
[2021-03-06 08:00] VITALS: BP 128/87; PULSE 75; RESP 18; TEMP 36.6
[2021-03-06] MEDS: WITCH HAZEL 40 PADS 1 PAD TOPICAL (09:25)
[2021-03-06] MEDS: LANOLIN (LANSINOH) 7.5 GM CREAM 1 APPLIC TOPICAL (09:25)
[2021-03-06] MEDS: BENZOCAINE 20% AER SPR (*SP) 56 GM CAN 1 SPRAY TOPICAL (09:25)
[2021-03-06] MEDS: MULTIVIT/MIN/PREN/FOL AC/IRON TABLET 1 TAB PO (09:26)
[2021-03-06] MEDS: POLYSACCHARIDE IRON COMPLEX 150 MG CAPSULE PO (09:26)
[2021-03-06] MEDS: IBUPROFEN 600 MG TABLET PO (09:26)
[2021-03-06] MEDS: HYDROcodone/acetaminophen (*CRX) 5-325 MG TABLET 1 TAB PO (09:26)
--- NOTE | 2021-03-06 10:33 | PC.NURSE ---
Self care and infant care discharge instructions given including follow up visit date and time. Pt. verbalized understanding. No questions or concerns voiced. FOB at side. Very pleasant and cooperative. Instructed mom to bring infant back for repeat serum bilirubin on tomorrow before noon on 03/07/21. Pt. verbalized understanding.
[2021-03-08 08:12] VITALS: BP 135/79; PULSE 80; RESP 20; TEMP 36.8; O2SAT 100
== END 2021-03-06 11:40 | disposition home or self-care (01) | DRG 798 ==
LOC: ANHLDR 19:52 → ANHOB2 03-04 21:19
PROVIDERS: Admitting Provider Student in an Organized Health Care Education/Training Program; PCP Internal Medicine; Visit Provider Student in an Organized Health Care Education/Training Program
DX: O14.04 Mild to moderate pre-eclampsia, complicating childbirth (principal); Z37.0 Single live birth; O99.214 Obesity complicating childbirth; E66.9 Obesity, unspecified; O70.1 Second degree perineal laceration during delivery; O63.1 Prolonged second stage (of labor); O69.81X0 Labor and delivery complicated by cord around neck, without compression, not applicable or unspecified; O76 Abnormality in fetal heart rate and rhythm complicating labor and delivery; Z3A.37 37 weeks gestation of pregnancy; O72.1 Other immediate postpartum hemorrhage
CPT/HCPCS: 36415; 36430; 80053; 84550; 85025; 85027; 86592; 86850; 86900; 86901; 86920; 88307; A9270; J2210; J2405; J2590; J2795; J7050; J7120; P9016

== ENCOUNTER 2021-03-15 10:57 | Outpatient (RCR) | payer OTHER, SELFPAY ==
--- NOTE | 2021-03-15 11:00 | PC.NURSE ---
IN 1000 OUT 1050 HISTORY: Pt. delivered at [facility] at 37 weeks. had no complications after delivery. Mother had complications after delivery,Large EBL for > 1000. Mother has a history infertility. Mother and discharged on a feeding plan with pumping and supplementation after each feeding due to not at the breast for the first 24 hours. Infant is now 11 days old. Infant appears to be well cared for. last seen by ICP at 1 week. Mother reports: Currently at 6 wets per day and 2 yellow seedy stools per day. weight: 7#10 Discharge weight: 6#15 Last Weight:7#5 is eagerly latching with minimal tenderness and appears satisfied after most feedings. Mother pumps 2-4oz after each feeding and feels full and uncomfortable within an hour of pumping. Mother will offer a bottle at times, if wakes and shows feeding cues before three hours. Mother wishes: To decrease pumping and supplementation. OBSERVATION: Pre feeding weight: 3482 Post feeding weight: 3526 Tongue is able to move tongue freely past gum ridge, both lips flange easily. Mother has everted nipples with skin intact no redness, blisters, scabbing or abrasions noted. Mother is able to latch deeply/correctly using cross cradle. eagerly latches nursing with long rhythmical draws and freq swallowing noted. will pull back while feeding and slip to shallow latch causing mother slight tenderness. Demonstrated how to adjust latch more deeply while feeding. Suggested mother give slight resistance when pulls back to assist with maintaining deep latch. Infant you nipple in without issue. Mother wanted to switch to cradle, advised to maintain cross cradle to keep infant in a deep latch. Infant fed consistently for 15 minutes with adequate intake by pre/post weight. Mother states she feels full on breast did not feed. Reviewed to comfort pump breast did not nurse and use ice packs to both after, rotating breast each feeding to help decrease milk supply. Advised it is normal for to wake and show feeding cues before three hours, suggested if wakes to return infant to breast to allow to assist with naturally emptying breasts and regulate milk supply. PLAN: Mother will follow above feeding plan to reduce milk supply. Mother will call with further questions or concerns. Follow up phone call scheduled for 03-22-2021.
== END 2021-04-15 12:41 | disposition home or self-care (01) ==
LOC: ANHOBOP 10:57
PROVIDERS: PCP Internal Medicine; Visit Provider Pediatrics
DX: Z39.1 Encounter for care and examination of lactating mother (principal)
CPT/HCPCS: 99212; G0463

== ENCOUNTER 2022-01-28 15:53 | Emergency (ER) | payer OTHER, SELFPAY ==
--- NOTE | ~2022-01-28 | US_ITS ---
EXAMINATION: US OB <=14 wk fetus w TV DATE: 01/28/2022 17:59 INDICATION: Vaginal bleeding. TECHNIQUE: Real-time transabdominal and transvaginal pelvic ultrasound was performed. COMPARISON: None. FINDINGS: TRANSABDOMINAL ULTRASOUND: The uterus measures 9.7 x 4.2 x 4.1 cm. TRANSVAGINAL ULTRASOUND: The endometrial complex is thickened to 2.5 cm and demonstrates heterogeneou s echogenicity with small cystic areas measuring up to 4 mm. The yolk sac or pole is identified . The right ovary measures 2.4 x 2.7 x 1.5 cm. The left ovary measures 2.4 x 1.3 x 1.5 cm. There is n o free fluid in the pelvis. IMPRESSION: 1. Thickened, heterogeneous endometrial complex. The differential diagnosis includes spontaneous abo rtion, ectopic , gestational trophoblastic disease, and early . Serial beta hCGs ar e recommended. Reviewed, dictated and finalized at location A. IMPRESSION: 1. Thickened, heterogeneous endometrial complex. The differential diagnosis in cludes spontaneous , ectopic , gestational trophoblastic disea se, and early . Serial beta hCGs are recommended.
[2022-01-28 16:10] VITALS: BP 156/89; PULSE 87; RESP 12; TEMP 36.5; O2SAT 99
[2022-01-28 16:27] LABS: Basophils Absolute Auto 0.1 K/mm3 (0.0-0.1); Basophils Percent Auto 0.4 % (0.2-1.2); Eosinophils Absolute Auto 0.1 K/mm3 (0-0.3); Eosinophils Percent Auto 0.6 % (0-4.4); Hematocrit 40.7 % (37.0-47.0); Hemoglobin 13.7 g/dL (12.0-15.0); Immature Granulocyte Absolute 0.02 K/mm3 (0.00-0.031); Immature Granulocyte Percent A 0.2 % (0-0.5); Lymphocytes Absolute Auto 2.66 K/mm3 (0.9-3.2); Lymphocytes Percent Auto 22.6 % (18.3-44.2); Mean Corpuscular HGB Conc 33.7 g/dl (32-36); Mean Corpuscular Hemoglobin 30.4 pg (26-34); Mean Corpuscular Volume 90.4 fl (80-100); Mean Platelet Volume 10.8 fl (7.4-10.4); Monocytes Absolute Auto 0.5 K/mm3 (0.1-0.6); Monocytes Percent Auto 4.3 % (2.6-8.5); Neutrophils Absolute Auto 8.5 K/mm3 (1.3-6.7); Neutrophils Percent Auto 71.9 % (45.5-73.1); Platelet Count Result 257 k/mm3 (150-375); Red Cell Distribution Width 14.1 % (11.5-14.5); White Blood Count 11.8 K/mm3 (4.5-10.0)
--- NOTE | 2022-01-28 18:04 | ED.PREGNANCY ---
HPI - General Chief complaint: Vaginal Bleeding Stated complaint: vaginal bleeding 6 weeks Time Seen by Provider: 01/28/22 16:34 History of Present Illness HPI Narrative: 31-year-old female who is currently under the care of at [facility] fertility test revealed receiving IVF treatments presents to the emergency room for evaluation of vaginal bleeding. Patient states that she is 6 weeks , was seen in her OB earlier today and diagnosed with a subchorionic hemorrhage. Patient continues to experience vaginal bleeding, reporting that she is saturating 1 pad every 2 hours. Patient states she was told by her OB to come to the emergency room if she noticed continued bleeding along with clots. Patient has a history of PCOS and endometriosis Related Data Home Medications Medication Instructions Recorded Confirmed [id number] 1 mg 1 tablet PO DAILY 03/02/21 03/02/21 tablet Allergies Allergy/AdvReac Type Severity Reaction Status Date / Time latex Allergy Hives Verified 04/14/19 14:08 Review of Systems Review of Systems: CONSTITUTIONAL: Denies fever, chills, or sweats. EYES: Denies visual changes, redness, or discharge. ENT: Denies rhinorrhea, congestion, sore throat, or otalgia. CARDIOVASCULAR: Denies chest pain, palpitations, or edema. RESPIRATORY: Denies cough or dyspnea. GASTROINTESTINAL: Denies abdominal pain, nausea, vomiting, or diarrhea. GENITOURINARY: Reports vaginal bleeding SKIN: Denies rash or itching. MUSCULOSKELETAL: Denies back pain, joint pain, or myalgia. NEUROLOGIC: Denies headache, numbness, dizziness, or weakness. PSYCHIATRIC: Denies anxiety or depression. PMFSH Past Medical History Medical History Obesity PIH ( induced hypertension) Pre-eclampsia and not yet delivered Tonsillectomy planned Social History Social History Smoking status: Former smoker Tobacco type: e-cigarettes/vaping Substance use: never Spiritual care concerns: No Exam Narrative: GENERAL: Well-appearing, well-nourished, no physical limitations, and in no acute distress. HEAD: Normocephalic, atraumatic. EYES: Conjunctivae normal, PERRLA and EOMI. CHEST: Clear to auscultation. No respiratory distress. No wheezes rales or rhonchi. HEART: Regular rate and rhythm. No murmur heard. Normal peripheral pulses. ABDOMEN: Soft, lower abdominal tenderness, nondistended, normal active bowel sounds. : EXTREMITIES: Normal range of motion. No edema. No clubbing or cyanosis SKIN: Warm, dry, no rash. No noted wounds NEURO: No focal deficits. Alert and oriented x3. MAEW. CN's II-XI intact bilaterally, normal gait PSYCH: Cooperative. Normal mood and affect. Course Vital Signs Vital signs: Vital Signs Temperature 36.5 C 01/28/22 16:10 Pulse Rate 87 01/28/22 16:10 Respiratory Rate 12 01/28/22 16:10 Blood Pressure 156/89 H 01/28/22 16:10 Pulse Oximetry 99 01/28/22 16:10 Oxygen Delivery Room Air 01/28/22 16:10 Temperature 36.5 C 01/28/22 16:10 Pulse Rate 87 01/28/22 16:10 Respiratory Rate 12 01/28/22 16:10 Blood Pressure 156/89 H 01/28/22 16:10 Pulse Oximetry 99 01/28/22 16:10 Oxygen Delivery Room Air 01/28/22 16:10 MDM - OB/Uterine Contractions MDM Narrative Medical decision making narrative: 1900: Discussed case with DOLLY Dsouza who is Dr. Gerard's nurse. She said if patient is stable to be discharged home to go ahead and do so and either herself or the doctor will follow-up with her tonight. Discussed findings and discussion I had with nurse Lianna, patient was agreeable and will be discharged home. CBC shows no signs of anemia, patient is hemodynamically stable throughout her ER stay. Lab Data Result diagrams: 01/28/22 16:20 Labs: Lab Results 01/28/22 01/28/22 01/28/22 Range/Uni
[2022-01-28 19:10] VITALS: BP 122/77; PULSE 80; RESP 16; O2SAT 100
== END 2022-01-28 19:11 | disposition home or self-care (01) ==
PROVIDERS: Emergency Medicine; Emergency Provider Nurse Practitioner Family; PCP Internal Medicine
DX: O20.9 Hemorrhage in early pregnancy, unspecified (principal); Z3A.01 Less than 8 weeks gestation of pregnancy; Z87.891 Personal history of nicotine dependence
CPT/HCPCS: 36415; 76801; 76817; 84702; 85025; 85461; 86850; 86900; 86901; 99284

== ENCOUNTER 2022-11-10 15:58 | Outpatient (CLI) | payer OTHER, SELFPAY ==
[2022-11-10 15:59] LABS: Basophils Percent Auto 0.3 % (0.2-1.2); Eosinophils Percent Auto 0.3 % (0-4.4); Hematocrit 38.9 % (37.0-47.0); Immature Granulocyte Absolute 0.04 K/mm3 (0.00-0.031); Immature Granulocyte Percent A 0.3 % (0-0.5); Lymphocytes Absolute Auto 2.42 K/mm3 (0.9-3.2); Lymphocytes Percent Auto 20.2 % (18.3-44.2); Mean Corpuscular HGB Conc 33.4 g/dl (32-36); Mean Corpuscular Hemoglobin 31.5 pg (26-34); Mean Corpuscular Volume 94.2 fl (80-100); Mean Platelet Volume 11.2 fl (7.4-10.4); Monocytes Absolute Auto 0.5 K/mm3 (0.1-0.6); Monocytes Percent Auto 4.1 % (2.6-8.5); Neutrophils Absolute Auto 8.9 K/mm3 (1.3-6.7); Neutrophils Percent Auto 74.8 % (45.5-73.1); Platelet Count Result 228 k/mm3 (150-375); Red Blood Count 4.13 M/mm3 (4.2-5.4); Red Cell Distribution Width 14.4 % (11.5-14.5)
[2022-11-10 16:10] LABS: Alanine Aminotransferase 16 U/L (6-35); Albumin Level 4.3 g/dL (3.5-5.1); Alkaline Phosphatase 44 U/L (38-126); Anion Gap 8 mmol/L (8-16); Aspartate Amino Transferase 16 U/L (14-36); Bilirubin,Total 0.3 mg/dL (0.2-1.3); Blood Urea Nitrogen 13 mg/dL (7-17); Calcium 9.2 mg/dL (8.4-10.2); Carbon Dioxide 19 mmol/L (22-30); Chloride 105 mmol/L (98-107); Estimated Glomerular Filt Rate > 60; Glucose 138 mg/dL (65-110); Potassium 3.4 mmol/L (3.4-5.0); Sodium 132 mmol/L (137-145)
[2022-11-10 16:30] LABS: Creatinine Urine 38.8 mg/dL; Total Protein Urine Random 20 mg/dL
[2022-11-10 16:50] LABS: HIV 1/2 Ab P24 Ag Result Negative (Negative)
[2022-11-10 18:47] LABS: Hepatitis B Surface Antigen Negative (Negative)
[2022-11-10 20:53] LABS: Rubella IgG Antibody > 110.0 IU/ML
[2022-11-11 11:03] LABS: Rapid Plasma Reagin Non-Reactive (NonReactive)
== END 2022-11-10 15:59 | disposition home or self-care (01) ==
PROVIDERS: PCP Internal Medicine; Visit Provider Student in an Organized Health Care Education/Training Program
DX: N94.89 Other specified conditions associated with female genital organs and menstrual cycle (principal); Z87.59 Personal history of other complications of pregnancy, childbirth and the puerperium
CPT/HCPCS: 36415; 80053; 81050; 82570; 84156; 84702; 85025; 86592; 86644; 86703; 86747; 86762; 86787; 86850; 86900; 86901; 87086; 87088; 87340; G0432

== ENCOUNTER 2022-11-24 08:11 | Outpatient (CLI) | payer OTHER, SELFPAY ==
[2022-11-24 10:44] LABS: Total Protein Urine Random 15 mg/dL
[2022-11-24 11:00] LABS: Specific Gravity Ur 1.015; Total Protein Urine 24 Hr 555 mg/24hr (28-141); Total Volume 24 Hour Urine 3700 ml
== END 2022-11-24 08:12 | disposition home or self-care (01) ==
LOC: ANHLAB 08:13
PROVIDERS: PCP Internal Medicine; Visit Provider Student in an Organized Health Care Education/Training Program
DX: Z87.59 Personal history of other complications of pregnancy, childbirth and the puerperium (principal)
CPT/HCPCS: 81050; 84156

== ENCOUNTER 2023-02-20 07:30 | Outpatient (CLI) | payer OTHER, SELFPAY ==
[2023-02-20 08:51] LABS: Hematocrit 35.7 % (37.0-47.0); Hemoglobin 11.5 g/dL (12.0-15.0); Mean Corpuscular HGB Conc 32.2 g/dl (32-36); Mean Corpuscular Hemoglobin 30.3 pg (26-34); Mean Corpuscular Volume 94.2 fl (80-100); Mean Platelet Volume 10.9 fl (7.4-10.4); Platelet Count Result 197 k/mm3 (150-375); Red Blood Count 3.79 M/mm3 (4.2-5.4); Red Cell Distribution Width 12.9 % (11.5-14.5); White Blood Count 9.4 K/mm3 (4.5-10.0)
[2023-02-20 09:03] LABS: Glucose 1 Hour PP 50gm Dose 138 mg/dL
[2023-02-20 09:42] LABS: HIV 1/2 Ab P24 Ag Result Negative (Negative)
== END 2023-02-20 07:31 | disposition home or self-care (01) ==
LOC: ANHLAB 07:32
PROVIDERS: PCP Internal Medicine; Visit Provider Student in an Organized Health Care Education/Training Program
DX: Z34.90 Encounter for supervision of normal pregnancy, unspecified, unspecified trimester (principal); Z3A.00 Weeks of gestation of pregnancy not specified
CPT/HCPCS: 36415; 82947; 85027; 86703; G0432

== ENCOUNTER 2023-02-21 07:50 | Outpatient (CLI) | payer OTHER, SELFPAY ==
[2023-02-21 08:21] LABS: Glucose Fasting Gestational 86 mg/dL (>/=95)
[2023-02-21 10:53] LABS: Glucose 1 Hour Gest 169 mg/dL (>/=180)
[2023-02-21 11:07] LABS: Glucose 2 Hour Gest 132 mg/dL (>/= 155)
[2023-02-21 12:11] LABS: Glucose 3 Hour Gest 83 mg/dL (>/=140)
== END 2023-02-21 07:51 | disposition home or self-care (01) ==
LOC: ANHLAB 07:52
PROVIDERS: PCP Internal Medicine; Visit Provider Student in an Organized Health Care Education/Training Program
DX: R73.09 Other abnormal glucose (principal)
CPT/HCPCS: 36415; 82951; 82952

== ENCOUNTER 2023-05-10 16:51 | Inpatient (IN) | payer OTHER, SELFPAY ==
[2023-05-10] VITALS (17 sets, daily range): BP systolic 109–147; BP diastolic 60–91; PULSE 83–107; TEMP 36.6–36.7; BMI 35.2
[2023-05-10 17:34] LABS: Basophils Percent Auto 0.3 % (0.2-1.2); Eosinophils Percent Auto 0.4 % (0-4.4); Hematocrit 33.7 % (37.0-47.0); Hemoglobin 10.8 g/dL (12.0-15.0); Immature Granulocyte Absolute 0.08 K/mm3 (0.00-0.031); Immature Granulocyte Percent A 0.7 % (0-0.5); Lymphocytes Absolute Auto 2.28 K/mm3 (0.9-3.2); Lymphocytes Percent Auto 20.8 % (18.3-44.2); Mean Corpuscular Hemoglobin 28.1 pg (26-34); Mean Corpuscular Volume 87.8 fl (80-100); Mean Platelet Volume 11.2 fl (7.4-10.4); Monocytes Absolute Auto 0.8 K/mm3 (0.1-0.6); Monocytes Percent Auto 6.9 % (2.6-8.5); Neutrophils Absolute Auto 7.8 K/mm3 (1.3-6.7); Neutrophils Percent Auto 70.9 % (45.5-73.1); Platelet Count Result 181 k/mm3 (150-375); Red Blood Count 3.84 M/mm3 (4.2-5.4); Red Cell Distribution Width 14.4 % (11.5-14.5)
--- NOTE | 2023-05-10 17:43 | LDADM ---
This patient, Hina Bonilla, was admitted to Labor/Delivery/Recovery 108 on 05/10/23 at 16:51. Plans for labor, pain management and were discussed with patient. Patient/family oriented to hospital policies and general routines including ID bracelet, bed and alarms, visiting hours, pain management, procedures, bathroom and other care routines, personal items, smoking policy, room service/diet and guest tray routines, infant security routines, and visiting hours. Patient/Family are encouraged to report perceived risks to care and to ask questions if they do not understand what they are told or what they should do. See OBIX for further documentation.
[2023-05-10] MEDS: DINOPROSTONE 10 MG VAG INSERT VAGINAL (18:32)
[2023-05-10] MEDS: SERTRALINE HCL 25 MG TABLET 75 MG PO (21:38)
[2023-05-11] VITALS (143 sets, daily range): BP systolic 91–177; BP diastolic 47–138; PULSE 72–128; RESP 16–18; TEMP 36.3–36.7; O2SAT 79–100
[2023-05-11] MEDS: ZOLPIDEM TARTRATE (*CRX) 5 MG TABLET PO (01:04)
[2023-05-11] MEDS: LACTATED RINGERS 1,000 ML 125 ML IV CONT ×2 (05:15→10:43)
[2023-05-11] MEDS: OXYTOCIN 30 UNITS/NS 500 ML 30 UNITS/500 ML BAG IV CONT (05:16)
[2023-05-11] MEDS: fentaNYL CITRATE INJ (*CRX) 100 MCG/2 ML VIAL 50 MCG IV PUSH (05:37)
--- NOTE | 2023-05-11 06:16 | WPDANESEPP ---
Anes - Eval Pre Procedure Procedure: Labor epidural Date/Time: 05/11/23 06:16 Surgeon: laura Preop Diagnosis: Abdominal pain with contractions Pre Op Diagnosis: iol Patient Data Age: 32 Gender: F Height: 1.78 m Weight: 111.4 kg Last Vital Signs Temp 98.1 F 05/11/23 05:30 Pulse 102 H 05/11/23 06:05 BP 161/105 H 05/11/23 06:05 O2 Del Method Room Air 05/10/23 17:40 Allergies Allergy/AdvReac Type Severity Reaction Status Date / Time latex Allergy Hives Verified 05/09/23 13:51 Home Medications Medication Instructions Recorded Confirmed Type sertraline 50 mg tablet (Zoloft) 75 mg PO DAILY 03/18/22 05/09/23 History vit no.95-ferrous 1 tablet PO DAILY 05/10/23 05/10/23 History fumarate 28 mg-folic acid 800 mcg tablet () Laboratory Tests 05/10/23 17:22 WBC 11.0 H K/mm3 (4.5-10.0) RBC 3.84 L M/mm3 (4.2-5.4) Hgb 10.8 L g/dL (12.0-15.0) Hct 33.7 L % (37.0-47.0) MCV 87.8 fl (80-100) MCH 28.1 pg (26-34) MCHC 32.0 g/dl (32-36) RDW 14.4 % (11.5-14.5) Plt Count 181 k/mm3 (150-375) MPV 11.2 H fl (7.4-10.4) Immature Gran % (Auto) 0.7 H % (0-0.5) Neut % (Auto) 70.9 % (45.5-73.1) Lymph % (Auto) 20.8 % (18.3-44.2) Stearns % (Auto) 6.9 % (2.6-8.5) Eos % (Auto) 0.4 % (0-4.4) Baso % (Auto) 0.3 % (0.2-1.2) Lymph # (Auto) 2.28 K/mm3 (0.9-3.2) Stearns # (Auto) 0.8 H K/mm3 (0.1-0.6) Eos # (Auto) 0.0 K/mm3 (0-0.3) Baso # (Auto) 0.0 K/mm3 (0.0-0.1) Abs Immat Gran (auto) 0.08 H K/mm3 (0.00-0.031) Absolute Neuts (auto) 7.8 H K/mm3 (1.3-6.7) Absolute Nucleated RBC 0.0 K/mm3 (0.0-0.012) Nucleated RBC % 0.0 % (0.0-0.2) RPR Pending Blood Type A Positive Antibody Screen Positive Antibody Identification Pending Antigen Identification Pending WANDA, IgG Interpret Not Performed WANDA, Poly Interpret Negative WANDA, Complement Interp Not Performed : gestational age HCG: positive Patient hx anesthesia problems: none Family hx anesthesia problems: none Results Review: All pre-operative results and documents have been reviewed as part of the pre-operative evaluation. [facility] Past Medical History Medical History Elevated glucose tolerance test Endometriosis determined by laparoscopy Obesity Personal history of other complications of , childbirth and the puerperium PIH ( induced hypertension) Pre-eclampsia and not yet delivered Suppression of menses Tonsillectomy planned Vaginal discharge Family History Family History (Updated 05/10/23 @ 17:44 by Jenny Calixto RN) Grandparent Breast cancer Social History Social History Smoking status: Former smoker Tobacco type: e-cigarettes/vaping Second hand tobacco smoke exposure: No Alcohol intake: never Substance use: never Do You Feel Safe in your Home?: Yes Lack of Transportation: No Lack of Food: Never True Current Housing: I Have Housing Concerned About Future Housing: No Difficulty Paying Gas/Electric Bills: No Difficulty Paying for Meds: No Currently Unemployed: No Education: High School Diploma/GED Difficulty w/ Childcare or Family Care: No Living arrangements: with family Occupation/Education: occupation Gender identity (if verbalized by the patient): Female Spiritual care concerns: No Exam Day of Procedure 05/11/23 06:16 Patient weight: overweight Heart: regular rate and rhythm Lungs: clear to auscultation
[2023-05-11 11:51] LABS: Rapid Plasma Reagin Non-Reactive (NonReactive)
[2023-05-11] MEDS: miSOPROStol 200 MCG TABLET 1000 MCG RECTAL (12:00)
--- NOTE | 2023-05-11 12:03 | P.PCNOB_ITS ---
OB - Vaginal Delivery Note Procedure Delivery date: 05/11/23 Induction method: Per Cervidil Protocol Delivery augmentation: Rupture of Membranes and Pitocin Delivery monitor: External FHT and Internal Uterine Route of delivery: Episiotomy description: None Laceration Description: None Specimen: No Quantitative Blood Loss (ml): 300 Anesthesia type: Epidural Disposition: Floor Complications: No immediate complications Narrative: Patient prepped draped usual manner this procedure. Maternal expulsive efforts readily delivered vertex, rest of baby delivered without difficulty. Cord clamped cut placenta delivered spontaneously. Uterus was well contracted with minimal bleeding, cervix vagina vulva were inspected with no lacerations or tears. Uterus slightly oozy therefore Cytotec was given (due to history of hemorrhage in her last delivery). Further monitoring without issue. [place] Baby Weeks of gestation at delivery: 39 gender: Male presentation: vertex position: Right Occiput Anterior Placenta delivery description: Spontaneous Cord Vessel Description: 3 Vessels AMG Delivery Billing Delivery Delivery: Delivery Charge
--- NOTE | 2023-05-11 12:03 | WPDHPUPDATE1 ---
History and Physical Update Update Date/Time: 05/11/23 12:03 History and Physical has been reviewed, including an updated exam of the patient. There are NO changes in the patient's condition. Risks, benefits, and alternatives have been discussed and questions answered. Patient agrees to proceed with procedure.
--- NOTE | 2023-05-11 12:03 | WPDOBADMIT ---
Obstetrics - Admit Note Admission Note: record reviewed. No pertinent additions to the history and/or any subsequent changes in the physical findings that are not consistent with the expected course of the were found. Additions to the history and/or subsequent changes in the physical findings follow. None.
[2023-05-11] MEDS: OXYTOCIN 30 UNITS/NS 500 ML 30 UNITS/500 ML BAG 125 UNITS IV CONT ×2 (12:09→15:27)
[2023-05-11] MEDS: ACETAMINOPHEN 325 MG TABLET 650 MG PO (13:34)
[2023-05-11] MEDS: LOPERAMIDE HCL 2 MG CAPSULE 4 MG PO (13:35)
[2023-05-11] MEDS: CARBOPROST TROMETHAMINE 250 MCG/ML AMPUL IM (13:35)
--- NOTE | 2023-05-11 13:39 | PC.NURSE ---
0644 Introductions made briefly and L&D RNs state it is not a good time to educate as they are working with PP bleeding. Mother has a history of PPH. Breast pump provided due to separation. Jenny RNC requested pump to be left to pump after the bleeding is under control. Mother asked if we had a 19mm flange and was informed that the smallest we have is a 21mm. Inpatient resource provided.
[2023-05-11] MEDS: SERTRALINE HCL 25 MG TABLET 75 MG PO (21:55)
[2023-05-12 03:10] VITALS: BP 130/86; PULSE 88; RESP 18; TEMP 37
[2023-05-12 04:44] LABS: Hematocrit 28.6 % (37.0-47.0); Hemoglobin 8.9 g/dL (12.0-15.0)
--- NOTE | 2023-05-12 07:15 | PM.OBDSVD ---
DS: Admitting Diagnosis Discharge Date 05/13/2023 Admitting Diagnosis DS: Discharge Diagnosis Discharge Diagnosis (1) , delivered: Code(s): O80 - Encounter for full-term uncomplicated delivery Status: Acute OB - DS: Summary OB Procedures : None OB Procedures Intrapartum: Spontaneous Vag Delivery OB Procedures: : None Peripartum Data Laceration Description: None Episiotomy description: None Time Spent with Patient Time attestation: Total time spent providing and/or coordinating discharge services: DS: Data Data Completed and Pending Labs on day of discharge: Labs from last 24 hours 05/12/23 05/10/23 05/10/23 03:08 17:22 17:22 Hgb 8.9 L Hct 28.6 L RPR Non-reactive Blood Type A Positive Antibody Screen Positive Antibody Identification Anti-c Anti-Gonzalez A Antigen Identification Cancelled WANDA, Poly Interpret Negative Enhanced Crossmatch See Detail Discharge Plan Discharge Discharging Clinician: Hiram Cordova Patient Disposition: Home, Self-Care Activity: as tolerated Diet: as tolerated Patient Instructions: Antibiotic Form, How to Stop Smoking (DC), Cigarette Smoking and Your Health (GEN) Stand Alone Forms: General Discharge Information Follow-up/Referrals: Dante Rosario MD [Physician] - 3 Weeks Discharge Medications: New ibuprofen 600 mg Tablet 600 mg PO Q6H PRN (Reason: Cramping) Qty: 30 0RF Continued sertraline [Zoloft] 50 mg tablet 75 mg PO DAILY PNV cmb#95-ferrous fumarate-FA [] 28 mg iron- 800 mcg Tablet 1 tablet PO DAILY Date of admission: 05/10/23 16:51 Primary Care Provider: SuzieWong Admitting Provider: Dante Rosario Attending physician on admission: Dante Rosario Condition: Stable
[2023-05-12 07:40] VITALS: BP 140/72; PULSE 90; RESP 18; TEMP 37.1; O2SAT 99
[2023-05-12] MEDS: POLYSACCHARIDE IRON COMPLEX 150 MG CAPSULE PO ×2 (07:47→16:52)
[2023-05-12] MEDS: IBUPROFEN 600 MG TABLET PO ×2 (07:48→16:52)
[2023-05-12] MEDS: MULTIVIT/MIN/PREN/FOL AC/IRON TABLET 1 TAB PO (07:48)
[2023-05-12] MEDS: DOCUSATE SODIUM 100 MG CAPSULE PO ×2 (07:48→16:52)
[2023-05-12] MEDS: LANOLIN (LANSINOH) 7.5 GM CREAM 1 APPLIC TOPICAL (07:49)
--- NOTE | 2023-05-12 10:05 | WPDANLDPN2 ---
Anes-Prog Note L&D Date/Time: 05/12/23 10:05 Neuro status: Neuro function grossly intact. Cardiovascular status: normal Respiratory status: normal Airway patency: baseline Mental status: baseline Post-Op hydration status: normal Vital Signs: Last Vital Signs Temp 37.1 C 05/12/23 07:40 Pulse 90 05/12/23 07:40 Resp 18 05/12/23 07:40 BP 140/72 05/12/23 07:40 Pulse Ox 99 05/12/23 07:40 O2 Del Method Room Air 05/11/23 19:37 Pain score (VAS): 0 Post-procedural complaints: none Patient feedback: Patient satisfied with anesthetic care.
--- NOTE | 2023-05-12 15:10 | PC.NURSE ---
Addendum entered by Vidya Garcia RN 05/12/23 15:12: We did discuss the possibility of milk delay related to QBL being greater than 1000ml. Mother shared that with her first her full milk supply came in on day 10 so, she is aware of how to navigate that complication. Mother has an IBCLC that she is working with virtually prior to being a patient this visit and will again if needed. Original Note: [id number] Reintroductions were made and Mother is demonstrating her abilities to independently latch infant with appropriate positioning and alignment. She denies any nipple discomfort and is responsively . is currently meeting outcomes for weight, output, jaundice, and feeding frequencies of 8-12 times in 24 hours. Mother declines any additional assistance or education at this time. Mother is encouraged to call for assistance if her doesn?t latch, pain with latching, questions or concerns. Mother voiced understanding of information shared along with the feeding sheet and the mom/baby guide for an additional resource.
[2023-05-12 19:30] VITALS: BP 128/76; PULSE 88; RESP 18; TEMP 36.9
[2023-05-13] MEDS: POLYSACCHARIDE IRON COMPLEX 150 MG CAPSULE PO (08:02)
[2023-05-13] MEDS: DOCUSATE SODIUM 100 MG CAPSULE PO (08:02)
[2023-05-13] MEDS: IBUPROFEN 600 MG TABLET PO (08:02)
[2023-05-13] MEDS: MULTIVIT/MIN/PREN/FOL AC/IRON TABLET 1 TAB PO (08:04)
[2023-05-13 08:16] VITALS: BP 142/92; PULSE 72; RESP 20; TEMP 36.8; O2SAT 100
== END 2023-05-13 08:53 | disposition home or self-care (01) | DRG 807 ==
LOC: ANHOB2 05-13 07:10 → ANHLDR 05-15 10:59 → ANHOB2 05-15 10:59
PROVIDERS: Admitting Provider Obstetrics & Gynecology; PCP Internal Medicine; Visit Provider Obstetrics & Gynecology
DX: O80 Encounter for full-term uncomplicated delivery (principal); Z37.0 Single live birth; Z3A.39 39 weeks gestation of pregnancy
CPT/HCPCS: 36415; 85014; 85018; 85025; 86592; 86850; 86870; 86880; 86900; 86901; 86902; 86905; 86906; 86922; 86971; A9270; J2590; J2795; J3010; J7120

== ENCOUNTER 2024-07-06 09:38 | Emergency (ER) | payer OTHER, SELFPAY ==
--- NOTE | ~2024-07-06 | XR_ITS ---
EXAMINATION: XR wrist LT min 3V DATE: 07/06/2024 10:16 INDICATION: Left wrist injury TECHNIQUE: Posteroanterior, ulnar deviation, oblique, and lateral views of the left wrist were obtain ed. COMPARISON: none FINDINGS: Alignment is normal. No fracture. Joint spaces are normal. Soft tissues are unremarkable. IMPRESSION: 1. Negative left wrist radiographs. Reviewed, dictated and finalized at location A.
[2024-07-06 10:07] VITALS: BP 151/95; PULSE 83; RESP 16; TEMP 36.4; O2SAT 100
--- NOTE | 2024-07-06 10:08 | ED_ITS ---
HPI - Extremity Injury (Upper) General Chief Complaint: Extremity Injury, Upper Stated Complaint: INJURED L WRIST Time Seen by Provider: 07/06/24 10:08 Source: patient, RN notes reviewed and old records reviewed Mode of arrival: ambulatory Limitations: no limitations History of Present Illness HPI narrative: 34 year old female who [facility] with complaints of left wrist pain from injury yesterday. Patient reports that she lifted her 35# daughter over a puddle and felt a twist and crack in her wrist at onset of pain. Patient reports pain mainly along the ulna side of left wrist with increased pain with movement. Patient reports that she has iced and also taken Ibuprofen for her discomfort. Patient has mild swelling noted to her left wrist, strong left radial pulse present. MD complaint: injury to: left and wrist Onset (ago): day(s) (since yesterday) Other injuries: none Handedness: right Place: outdoors Severity scale (1-10): 8 Exacerbating factors: movement of extremity Treatments prior to arrival: cold therapy and NSAIDS Related Data Home Medications ?Medication ?Instructions ?Recorded ?Confirmed ?Last Taken ?Type sertraline 50 mg tablet (Zoloft) 75 mg PO DAILY 03/18/22 07/06/24 05/09/23 20:00 History lisdexamfetamine 40 mg capsule 40 mg PO 06/27/24 06/27/24 Unknown History (Vyvanse) Allergies Allergy/AdvReac Type Severity Reaction Status Date / Time latex Allergy Hives Verified 07/06/24 10:15 Review of Systems Review of Systems: CONSTITUTIONAL: Denies fever, chills, or sweats. EYES: Denies visual changes, redness, or discharge. ENT: Denies rhinorrhea, congestion, sore throat, or otalgia. CARDIOVASCULAR: Denies chest pain, palpitations, or edema. RESPIRATORY: Denies cough or dyspnea. GASTROINTESTINAL: Denies abdominal pain, nausea, vomiting, or diarrhea. GENITOURINARY: Denies dysuria or hematuria. SKIN: Denies rash or itching. MUSCULOSKELETAL: Denies back pain, positive for pain to her left wrist mainly ulnar aspect, or myalgia. NEUROLOGIC: Denies headache, numbness, or weakness. PSYCHIATRIC: Positive for history of anxiety or depression. All systems reviewed & are unremarkable except as noted in HPI and below [facility] Past Medical History Medical History (Updated 07/08/24 @ 09:25 by Sol Aden NP) ADHD (attention deficit hyperactivity disorder) Encounter for screening examination for sexually transmitted disease Encounter for insertion of mirena IUD Elevated glucose tolerance test Vaginal discharge Personal history of other complications of , childbirth and the puerperium Suppression of menses Endometriosis determined by laparoscopy Pre-eclampsia PIH ( induced hypertension) and not yet delivered Obesity Tonsillectomy planned Surgical History Surgical History History of hysteroscopy History of tonsillectomy Family History Family History Grandparent Breast cancer Other Ovarian cancer Social History Social History Smoking status: Former smoker Tobacco type: e-cigarettes/vaping Second hand tobacco smoke exposure: No Alcohol intake: never Substance use: never Do You Feel Safe in your Home?: Yes Lack of Transportation: No Lack of Food: Never True Current Housing: I Have Housing Concerned About Future Housing: No Difficulty Paying Gas/Electric Bills: No Difficulty Paying for Meds: No Currently Unemployed: No Education: High School Diploma/GED Difficulty w/ Childcare or Family Care: No Living arrangements: with family Occupation/Education: occupation Gender identity (if verbalized by the patient): Female Spiritual care concerns: No Comments At time of signature, agree with nursing past medical, surgical, social and family history. There is no relevant family history pertinent to the presenting complaint Exam Narrative: GENERAL: Well-appearing, well-nourished, and in no acute distress. HEAD: Normocephalic, atraumatic. EYES: PERRLA and EOMI. ENT: Nares clear, no rhinorrhea or epistaxis. Mucous membranes moist.TM's normal throat pink with tonsils absent. NECK: Supple.no lymphadenopathy CHEST: Clear to auscultation. No respiratory distress.SAO2 100% on room air HEART: Regular rate and rhythm. No murmur heard. Normal peripheral pulses. ABDOMEN: Soft, nontender, nondistended, normal active bowel sounds. EXTREMITIES: Normal range of motion. No edema.Exception noted to left wrist with pain and swelling noted especially along ulna aspect of left wrist, pain with movement with some limitation, strong left radial pulse denies any tingling or numbness, to left hand SKIN: Warm, dry, no rash. NEURO: No focal deficits. Alert and oriented x3. Course Course Emergency Course: Patient is aware of diagnosis, understands and agrees to treatment plan.? Anticipatory guidance given.? Patient agrees to follow-up as directed and is aware of reasons to seek care at the emergency department. Portions of this record may have been created with voice recognition software Level of Care: Express Care Visit Vital Signs Vital signs: Vital Signs Temperature 36.4 C L 07/06/24 10:07 Pulse Rate 83 07/06/24 10:07 Respiratory Rate 16 07/06/24 10:07 Blood Pressure 151/95 H 07/06/24 10:07 Pulse Oximetry 100 07/06/24 10:07 Temperature 36.4 C L 07/06/24 10:07 Pulse Rate 83 07/06/24 10:07 Respiratory Rate 16 07/06/24 10:07 Blood Pressure 151/95 H 07/06/24 10:07 Pulse Oximetry 100 07/06/24 10:07 Reviewed MDM - Extremity Injury (Upper) Differential Diagnosis Differential diagnosis: Likely sprain and strain of wrist, fracture of wrist and other (pain left wrist ) Medical Records Attestation: I reviewed the patient's medical records. Imaging Data Attestation: I personally reviewed and interpreted this imaging study as follows: My impression: Negative left wrist radiograph, no fracture or dislocation Radiologist's impression: [facility] [address] [place] [id number] XRay Report Signed Patient: Hina Bonilla : 1990 MR#: [id number] Age: 34 Acct:[id number] Loc: [facility] ADM Date: 07/06/24Attending Dr: Ordering Physician: Sol Aden APRN Date of Service: 07/06/24 Procedure(s): XR wrist LT min 3V Accession Number(s): [id number] cc: Suzie, Wong URIARTE; Sol Aden APRN~ EXAMINATION: XR wrist LT min 3V DATE: 07/06/2024 10:16 INDICATION: Left wrist injury TECHNIQUE: Posteroanterior, ulnar deviation, oblique, and lateral views of the left wrist were obtained. COMPARISON: none FINDINGS: Alignment is normal. No fracture. Joint spaces are normal. Soft tissues are unremarkable. IMPRESSION: 1. Negative left wrist radiographs. Reviewed, dictated and finalized at location A. Please be advised this is a medical document. It is intended for [id number] communication. It is written in medical language and may contain unfamiliar ab breviations or verbiage. Medical documents are intended to carry relevant information, facts as evident, and the clinical opinion of the practitioner at the time of the encounter. This report may have been done utilizing a voice recognition system. Attempts have been made to correct errors. However, there may be uncorrected grammatical, spelling, and recognition errors present. The file time of this note does not necessarily represent the time of service. Dictated By: Aaron Paz MD 07/06/24 1021 Signed By: <Electronically signed by Aaron Paz MD in OV> Critical Care Time Critical Care Time Critical Care Time: No Discharge Plan Discharge Clinical Impression: Sprain and strain of left wrist Patient Disposition: Home Condition: Stable Instructions: Antibiotic Form, Wrist Sprain (ED) Additional Instructions: Elastic wrap or orthopedic splint as directed for comfort for the next 5-7 days Tylenol for lesser pain Ibuprofen regularly for the next 2-3 days for the inflammation 400-600 mg 3 times daily with food Follow-up with orthopedic surgeon or hand surgeon if continued complaints Follow-up with PCP if further problems or concerns Ice to the area 20-30 minutes 4-6 times a day Elevate above heart If your symptoms persist, change or worsen significantly before you can contact your personal physician then please, without delay, go to the emergency department for further evaluation. Follow-up with PCP in 7-10 days or sooner if needed Follow up with PCP soon in regards to your blood pressure which is elevated above threshold for referral. Blood pressure above 120/80 may indicate pre- hypertension. 151/ Patient Language: Scottish Prescriptions: No Action sertraline [Zoloft] 50 mg tablet 75 mg PO DAILY lisdexamfetamine [Vyvanse] 40 mg capsule 40 mg PO Follow-up/Referrals: Suzie,MD Wong [Primary Care Provider] - Time of Disposition: 10:55 Quality Emily Coma Scale Eyes: Open Verbal: Oriented and Alert Motor: Follows Commands Emily Coma Total Score: 15
== END 2024-07-06 11:04 | disposition home or self-care (01) ==
PROVIDERS: Emergency Provider Registered Nurse; PCP Internal Medicine
DX: S63.502A Unspecified sprain of left wrist, initial encounter (principal); S66.912A Strain of unspecified muscle, fascia and tendon at wrist and hand level, left hand, initial encounter; X50.9XXA Other and unspecified overexertion or strenuous movements or postures, initial encounter; F90.9 Attention-deficit hyperactivity disorder, unspecified type; N80.9 Endometriosis, unspecified; E66.9 Obesity, unspecified; Z68.31 Body mass index [BMI] 31.0-31.9, adult; Z87.891 Personal history of nicotine dependence
CPT/HCPCS: 73110; 99213; G0463